=== PATIENT | male | born 1985 | race Caucasian/White ===

== ENCOUNTER 2017-11-21 01:50 | Outpatient (CLI) | payer BC, SELFPAY ==
[2017-11-21 08:53] LABS: Absolute Basophil Count 0.02 k/cumm (0.0-0.2); Absolute Eosinophil Count 0.03 k/cumm (0.0-0.7); Absolute Monocyte Count 0.55 k/cumm (0.11-0.7); Absolute Neutrophil Count 2.04 k/cumm (1.2-6.7); Basophils % 0.4; Eosinophils % 0.7; HCT 44.8 % (40.0-50.0); HGB 15.6 g/dL (13.5-17.5); Lymphocytes % 41.9; Mean Corp. HGB Concentration 34.8 g/dL (32.0-36.0); Mean Corpuscular Hemoglobin 30.4 pg (27.0-33.0); Mean Corpuscular Volume 87.2 fL (80-95); Mean Platelet Volume 10.6 fL (8.0-11.0); Monocytes % 12.1; Neutrophils % 44.9; Platelet Count 251 x1000/uL (130-400); RBC 5.14 m/cumm (4.50-6.00); RBC Distribution Width 12.8 % (11.8-14.1); White Blood Cell Count 4.54 k/cumm (4.4-10.8)
[2017-11-21 10:30] LABS: ALT 30 U/L (12-78); AST 22 U/L (15-37); Albumin 3.9 g/dL (3.4-5.0); Alkaline Phosphatase 51 U/L (46-116); Anion Gap 8.9 mmol/L (3-11); BUN 8 mg/dL (7-18); Bilirubin, Total 0.5 mg/dL (0.2-1.0); CO2 30.1 mmol/L (21.0-32.0); CREATININE 0.82 mg/dL (0.70-1.30); Calcium 8.8 mg/dL (8.5-10.1); Chloride 101 mmol/L (98-107); Cholesterol 137 mg/dL (50-200); Glucose 91 mg/dL (70-100); HDL Cholesterol 61 mg/dL (40-60); LDL CHOLESTEROL 68 mg/dL (<100); Potassium 4.3 mmol/L (3.5-5.1); Sodium 140 mmol/L (136-145); Total Protein 6.8 g/dL (6.4-8.2); Triglyceride 51 mg/dL (30-150); Vitamin B12 560 pg/mL (193-986)
[2017-11-21 10:35] LABS: Folate > 20.0 ng/mL (8.6-20.0)
[2017-11-26 06:57] LABS: 25-Hydroxy D Total 27 ng/mL; 25-Hydroxy D2 <4.0 ng/mL; 25-Hydroxy D3 27 ng/mL
== END 2017-11-21 02:10 ==
PROVIDERS: PCP Nurse Practitioner Family; Visit Provider Nurse Practitioner Family
DX: F15.20 Other stimulant dependence, uncomplicated (principal); F10.11 Alcohol abuse, in remission; F40.10 Social phobia, unspecified; Z13.21 Encounter for screening for nutritional disorder
CPT/HCPCS: 36415; 80053; 80061; 82306; 83721; 82607; 82746; 85025

== ENCOUNTER 2018-03-14 01:04 | Outpatient (CLI) | payer BC, SELFPAY ==
[2018-03-14 08:30] LABS: C-Reactive Protein < 0.05 mg/dL (0.0-0.3); Cholesterol 177 mg/dL (50-200); HDL Cholesterol 67 mg/dL (40-60); LDL CHOLESTEROL 95 mg/dL (<100); Triglyceride 66 mg/dL (30-150)
== END 2018-03-14 01:24 ==
PROVIDERS: PCP Nurse Practitioner Family; Visit Provider Internal Medicine Cardiovascular Disease
DX: I48.92 Unspecified atrial flutter (principal); Z82.49 Family history of ischemic heart disease and other diseases of the circulatory system
CPT/HCPCS: 36415; 80061; 83721; 86140

== ENCOUNTER 2018-07-12 16:14 | Emergency (ER) | payer BC, SELFPAY ==
[2018-07-12 16:20] VITALS: BP 143/73; PULSE 56; RESP 16; TEMP 36.6; O2SAT 98
--- NOTE | 2018-07-12 16:38 | DI.CT_ITS ---
SYMPTOMS/DIAGNOSIS: HIT IN FACE BY TREE, ? BLEED OR LEFORTES FX CT BRAIN: Noncontrast. No priors. The ventricular system is normal in appearance. There is no evidence of an intracranial mass lesion. There is no evidence of a subdural or epidural hematoma. No focal areas of decreased attenuation are seen. CONCLUSION: Normal noncontrast Cranial CT. CT SCAN OF THE FACE: Multiple contiguous axial images of the face were obtained. Sagittal and coronal reformatted images were evaluated on the workstation. No acute fracture or dislocation is seen. The orbits and retro-orbital soft tissues are unremarkable. The visualized paranasal sinuses are clear. IMPRESSION: No evidence of an acute facial fracture.
--- NOTE | 2018-07-12 16:47 | W.ED.GENAD ---
Discharge Plan Disposition Patient Disposition: HOME Condition: Good Discharge Details Chief Complaint: HeadInjury Clinical Impression: Concussion, Contusion of face Primary Care Provider: Patti Palomo ED Provider: Gustavo Aguirre Home Meds and New Rx's Prescriptions: No Action divalproex [Depakote ER] 500 MG tablet extended release 24 hr 1,500 mg PO HS Qty: 270 RF: 3 venlafaxine 150 mg Capsule,Extended Release 24hr 150 mg PO DAILY RF: 0 Discharge Instructions Instructions: Concussion (ED), Contusion in Adults (ED) Additional Instructions: If you notice any worsening of your symptoms, or any new symptoms such as vomiting, diarrhea, fever, chills, shortness of breath, chest pain, numbness, weakness, or fainting , please return immediately to the emergency department for reevaluation. Please follow up with your primary care provider as soon as possible for reassessment and reevaluation. As always, it was a pleasure participating in your medical care today. Referrals: Patti Palomo [Primary Care Provider] - Medical Decision Making This is a pleasant 32-year-old male with a past medical history of epilepsy who takes Depakote, who presents today for trauma to his face. He was hit in the face by a tree when he was cutting it. He had no loss of consciousness. He had some notable bleeding from his nose, and does feel that he is slightly dazed. Neurologic exam is normal for any focal neurologic deficits. Physical exam demonstrates a slightly loose tooth #8 in the upper incisor, no evidence of significant looseness so requiring bonding. No evidence of tooth fracture. Dried blood in the nares, no signs of nasal septal hematoma. Due to the nature of the trauma, we will get a CT scan of the head and face to rule out [place] fracture or acute bleed. Suspect concussion and contusion though. We will update his tetanus, and give Tylenol for pain. 6:[address] scan results have returned and per virtual radiology there is no evidence of acute fracture, [place] fracture, or intracranial bleed. Patient's pain is well controlled. Signs and symptoms are clinically consistent with a mild concussion. Recommend continue Tylenol, Motrin and rest. We discussed red flags which to return. Repeat neurologic exam demonstrates continued absence of neurologic deficits or abnormality. I have extensively reviewed the treatment plan and discharge instructions with the patient and their family. I have addressed all patient concerns at this time. The patient and family was made aware of what symptoms to monitor for that would warrant a return to the emergency department. Discussed the plan with the patient and family, they demonstrate verbal understanding and agreement with our assessment and plan at this time. EXAM: CT Maxillofacial Without Contrast EXAM DATE/TIME: 07/12/2018 5:06 PM CLINICAL HISTORY: 32 years old, male; Injury or trauma; Injury history: Struck in face by tree; Initial encounter; Abrasion; Lip/oral cavity; Upper TECHNIQUE: Imaging protocol: Axial computed tomography images of the face without intravenous contrast. Coronal and sagittal reformatted images were created and reviewed. COMPARISON: No relevant prior studies available. FINDINGS: No acute fracture or dislocation. The orbits and globes are intact bilaterally.The mandible is intact. The alignment of the temporomandibular joints is maintained bilaterally. IMPRESSION: No fracture. EXAM: CT Head Without Contrast EXAM DATE/TIME: 07/12/2018 5:06 PM CLINICAL HISTORY: 32 years old, male; Injury or trauma; Injury history: Struck in face by tree; Initial encounter; Abrasion; Lip/oral cavity; Upper TECHNIQUE: Imaging protocol: Axial computed tomography images of the head without contrast. Coronal and sagittal reformatted images were created and reviewed. COMPARISON: No relevant prior studies available. FINDINGS: There is no intracranial hemorrhage. There is no mass effect or midline shift. The ventricles and sulci are appropriate in size and configuration for age. Normal clancy white differentiation. The calvarium is intact. IMPRESSION: No acute intracranial findings. Dictated and Authenticated by: Frank Rice MD. Ordering:SHAYLEE Chen MD HPI General Date/Time Provider Initiated Documentation: 07/12/18 16:26. HPI Narrative: This is a pleasant 32-year-old male with a past medical history of epilepsy for which he takes Depakote, as well as previous cardiac condition of atrial flutter requiring cardiac ablation. He presents today for evaluation of trauma to his face. He states that he was cutting a tree when a branch instead of falling down snapped back and hit him in the front of the face. He had no loss of consciousness and recalls the entire event. It occurred roughly 1 hour prior to arrival. He had notable tingling and numbness over his front lip, bleeding from the nose, and pain in the distal aspect of the nose. He denies any loss of consciousness, change in vision, chest pain, shortness of breath, neck pain. He does have mild headache. He denies any other complaints at this time. No other modifying factors. Related Data Home Medications Medication Instructions Recorded Confirmed divalproex [Depakote Er] 1,500 mg PO HS #270 tab 07/22/17 07/12/18 venlafaxine 150 mg PO DAILY 07/12/18 07/12/18 Previous Rx's Medication Instructions Recorded divalproex [Depakote Er] 1,500 mg PO HS #270 tab 07/22/17 Allergies Allergy/AdvReac Type Severity Reaction Status Date / Time No Known Allergies Allergy Unverified 07/12/18 16:25 General Stated Complaint: HeadInjury TAVO: 3 Review of Systems Review of Systems All systems reviewed & are unremarkable except as noted in HPI and below PFSH Medical History Epilepsy (Acute) Social History Smoking/Tobacco Use Status: Never Alcohol Intake: current Drug use: Never Additional Social history: pt is not alone to assess privately Exam Narrative Exam Narrative: 1.Const: Well-nourished, Well-developed, appearing stated age 2.Eyes: PERRL, no conjunctival injection, and symmetrical lids. 3.ENT: . Small minimal laceration of the frenulum for his upper lip. Moist MM. Neck: Symmetric, trachea midline, No thyromegaly. There is no evidence of raccoon eyes, branch sign, CSF rhinorrhea, mastoid tenderness, cranial crepitus, hemotympanum, exophthalmos, or hyphema. Patient demonstrates intact dentition with no signs of tooth avulsion or fracture, no signs of jaw deformity, no evidence of a severe LeFort's fracture, with an intact palate, nose and orbital region. He does have a slightly loose upper front incisor at tooth 8. No evidence of significant looseness so. The difference is only subtle. There is no evidence of a nasal septal hematoma. There is dried blood in the nares. No proptosis. Jaw closes symmetrically. Airway is clear. 4.CVS: +S1/S2, No murmurs or gallops. Peripheral pulses 2+ and equal in all extremities. Brisk capillary refill in all extremities. 5.RESP: Unlabored respiratory effort. Clear to auscultation bilaterally. No wheezes rales or rhonchi 6.GI: Soft, Nontender/Nondistended, No hepatosplenomegaly. No guarding or rebound. 7.MSK: Normocephalic/Atraumatic, Extremities w/o deformity or ttp No cyanosis or clubbing, Normal movement of all extremities. No midline cervical thoracic or lumbar spine tenderness. 8.Skin: Warm, Dry. No rashes or lesions. 9.Neuro: dean II-XII grossly intact. Sensation grossly intact, no focal neurologic deficits. All 6 cardinal planes of vision are fully intact. No evidence of rotatory or vertical nystagmus. The patient demonstrated a normal klnmcu-[id number]-tiwsmn, good dexterity. There was no evidence of dysdiadochokinesia. Patient was able to ambulate without difficulty. There was no wide-based gait. Romberg, and nfbd-rk-juil are both normal on testing. Sensation was intact bilaterally as well as muscle strength bilaterally for all extremities. Patient was able to verbalize butter cup with no slurring, or miss pronunciation. 10.Psych: (AAO) x3. Appropriate mood and affect Course Vital Signs Temperature 36.6 C 07/12/18 16:20 Pulse 56 L 07/12/18 16:20 Respiratory Rate 16 07/12/18 16:20 Blood Pressure 143/73 H 07/12/18 16:20 Pulse Oximetry 98 07/12/18 16:20 Temperature 36.6 C 07/12/18 16:20 Temperature Source Skin 07/12/18 16:20 Pulse 56 L 07/12/18 16:20 Respiratory Rate 16 07/12/18 16:20 Respiratory Effort Non-Labored 07/12/18 16:43 Respiratory Depth Normal 07/12/18 16:43 Respiratory Pattern Normal 07/12/18 16:43 Blood Pressure 143/73 H 07/12/18 16:20 Pulse Oximetry 98 07/12/18 16:20 Pain Level 3 07/12/18 16:43
--- NOTE | 2018-07-12 16:50 | ED.GENADUL_ITS ---
Discharge Plan Disposition Patient Disposition: HOME Condition: Good Discharge Details Chief Complaint: HeadInjury Clinical Impression: Concussion, Contusion of face Primary Care Provider: Patti Palomo ED Provider: Gustavo Aguirre Home Meds and New Rx's Prescriptions: No Action divalproex [Depakote ER] 500 MG tablet extended release 24 hr 1,500 mg PO HS Qty: 270 RF: 3 venlafaxine 150 mg Capsule,Extended Release 24hr 150 mg PO DAILY RF: 0 Discharge Instructions Instructions: Concussion (ED), Contusion in Adults (ED) Additional Instructions: If you notice any worsening of your symptoms, or any new symptoms such as vomiting, diarrhea, fever, chills, shortness of breath, chest pain, numbness, weakness, or fainting , please return immediately to the emergency department for reevaluation. Please follow up with your primary care provider as soon as possible for reassessment and reevaluation. As always, it was a pleasure part icipating in your medical care today. Referrals: Patti Palomo [Primary Care Provider] - Medical Decision Making This is a pleasant 32-year-old male with a past medical history of epilepsy who takes Depakote, who presents today for trauma to his face. He was hit in the face by a tree when he was cutting it. He had no loss of consc iousness. He had some notable bleeding from his nose, and does feel that he is slightly dazed. Neurologic exam is normal for any focal neurologic deficits. Physical exam demonstrates a slightly loose tooth #8 in the upper incisor, no evidence of significant looseness so requiring bonding. No evidence of tooth fracture. Dried blood in the nares, no signs of nasal septal hematoma. Due to the nature of the trauma, we will get a CT scan of the head and face to rule out [place] fracture or acute bleed. Suspect concussion and contusion though. We will update his tetanus, and give Tylenol for pain. 6:[address] scan results have returned and per virtual radiology there is no evidence of acute fracture, [place] fracture, or intracranial bleed. Patient's pain is well controlled. Signs and symptoms are clinically consistent with a mild concussion. Recommend continue Tylenol, Motrin and rest. We discussed red flags which to return. Repeat neurologic exam demonstrates continued absence of neurologic deficits or abnormality. I have extensively reviewed the treatment plan and discharge instructions with the patient and their family. I have addressed all patient concerns at this time. The patient and family was made aware of what symptoms to monitor for that would warrant a return to the emergency department. Discussed the plan with the patient and family, they demonstrate verbal understanding and agreement with our assessment and plan at this time. EXAM: CT Maxillofacial Without Contrast EXAM DATE/TIME: 07/12/2018 5:06 PM CLINICAL HISTORY: 32 years old, male; Injury or trauma; Injury history: Struck in face by tree; Initial encounter; Abrasion; Lip/oral cavity; Upper TECHNIQUE: Imaging protocol: Axial computed tomography images of the face without intravenous contrast. Coronal and sagittal reformatted images were created and reviewed. COMPARISON: No relevant prior studies available. FINDINGS: No acute fracture or dislocation. The orbits and globes are intact bilaterally.The mandible is intact. The alignment of the temporomandibular joints is maintained bilaterally. IMPRESSION: No fracture. EXAM: CT Head Without Contrast EXAM DATE/TIME: 07/12/2018 5:06 PM CLINICAL HISTORY: 32 years old, male; Injury or trauma; Injury history: Struck in face by tree; Initial encounter; Abrasion; Lip/oral cavity; Upper TECHNIQUE: Imaging protocol: Axial computed tomography images of the head without contrast. Coronal and sagittal reformatted images were created and reviewed. COMPARISON: No relevant prior studies available. FINDINGS: There is no intracranial hemorrhage. There is no mass effect or midline shift. The ventricles and sulci are appropriate in size and configuration for age. Normal clancy white differentiation. The calvarium is intact. IMPRESSION: No acute intracranial findings. Dictated and Authenticated by: Frank Rice MD. Ordering:SHAYLEE Chen MD HPI General Date/Time Provider Initiated Documentation: 07/12/18 16:26 . HPI Narrative: T is a pleasant 32-year-old male with a past medical history of epilepsy for which he takes Depakote, as well as previous cardiac condition of atrial flutter requiring cardiac ablation. He presents today for evaluation of trauma to his face. He states that he was cutting a tree when a branch instead of falling down snapped back and hit him in the front of the face. He had no loss of consciousness and recalls the entire event. It occurred roughly 1 hour prior to arrival. He had notable tingling and numbness over his front lip, bleeding from the nose, and pain in the distal aspect of the nose. He denies any loss of consciousness, change in vision, chest pain, shortness of breath, neck pain. He does have mild headache. He denies any other complaints at this time. No other modifying factors. Related Data Home Medications Medication Instructions Recorded Confirmed divalproex [Depakote Er] 1,500 mg PO HS #270 tab 07/22/17 07/12/18 venlafaxine 150 mg PO DAILY 07/12/18 07/12/18 Previous Rx's Medication Instructions Recorded divalproex [Depakote Er] 1,500 mg PO HS #270 tab 07/22/17 Allergies Allergy/AdvReac Type Severity Reaction Status Date / Time No Known Allergies Allergy Unverified 07/12/18 16:25 General Stated Complaint: HeadInjury TAVO: 3 Review of Systems Review of Systems All systems reviewed & are unremarkable except as noted in HPI and below PFSH Medical History Epilepsy (Acute) Social History Smoking/Tobacco Use Status: Never Alcohol Intake: current Drug use: Never Additional Social history: pt is not alone to assess privately Exam Narrative Exam Narrative: 1.Const: Well-nourished, Well-developed, appearing stated age 2.Eyes: PERRL, no conjunctival injection, and symmetrical lids. 3.ENT: . Small minimal laceration of the frenulum for his upper lip. Moist MM. Neck: Symmetric, trachea midline, No thyromegaly. There is no evidence of raccoon eyes, branch sign, CSF rhinorrhea, mastoid tenderness, cranial crepitus, hemotympanum, exophthalmos, or hyphema. Patient demonstrates intact dentition with no signs of tooth avulsion or fracture, no signs of jaw deformity, no evidence of a severe LeFort's fracture, with an intact palate, nose and orbital region. He does have a slightly loose upper front incisor at tooth 8. No evidence of significant looseness so. The difference is only subtle. There is no evidence of a nasal septal hematoma. There is dried blood in the nares. No proptosis. Jaw closes symmetrically. Airway is clear. 4.CVS: +S1/S2, No murmurs or gallops. Peripheral pulses 2+ and equal in all extremities. Brisk capillary refill in all extremities. 5.RESP: Unlabored respiratory effort. Clear to auscultation bilaterally. No wheezes rales or rhonchi 6.GI: Soft, Nontender/Nondistended, No hepatosplenomegaly. No guarding or rebound. 7.MSK: Normocephalic/Atraumatic, Extremities w/o deformity or ttp No cyanosis or clubbing, Normal movement of all extremities. No midline cervical thoracic or lumbar spine tenderness. 8.Skin: Warm, Dry. No rashes or lesions. 9.Neuro: medical assistant float II-XII grossly intact. Sensation grossly intact, no focal neurologic deficits. All 6 cardinal planes of vision are fully intact. No evidence of rotatory or vertical nystagmus. The patient demonstrated a normal wibkte-gaci-rpbimq, good dexterity. There was no evidence of dysdiadochokinesia. Patient was able to ambulate without difficulty. There was no wide-based gait. Romberg, and qxoq-[id number] are both normal on testing. Sensation was intact bilaterally as well as muscle strength bilaterally for all extremities. Patient was able to verbalize butter cup with no slurring, or miss pronunciation. 10.Psych: (AAO) x3. Appropriate mood and affect Course Vital Signs Temperature 36.6 C 07/12/18 16:20 Pulse 56 L 07/12/18 16:20 Respiratory Rate 16 07/12/18 16:20 Blood Pressure 143/73 H 07/12/18 16:20 Pulse Oximetry 98 07/12/18 16:20 Temperature 36.6 C 07/12/18 16:20 Temperature Source Skin 07/12/18 16:20 Pulse 56 L 07/12/18 16:20 Respiratory Rate 16 07/12/18 16:20 Respiratory Effort Non-Labored 07/12/18 16:43 Respiratory Depth Normal 07/12/18 16:43 Respiratory Pattern Normal 07/12/18 16:43 Blood Pressure 143/73 H 07/12/18 16:20 Pulse Oximetry 98 07/12/18 16:20 Pain Level 3 07/12/18 16:43
[2018-07-12] MEDS: Acetaminophen 500 MG TAB (16:51)
--- NOTE | 2018-07-12 17:51 | DI.VRAD_ITS ---
EXAM: CT Maxillofacial Without Contrast EXAM DATE/TIME: 07/12/2018 5:06 PM CLINICAL HISTORY: 32 years old, male; Injury or trauma; Injury history: Struck in face by tree; Initial encounter; Abrasion; Lip/oral cavity; Upper TECHNIQUE: Imaging protocol: Axial computed tomography images of the face without intravenous contrast. Coronal and sagittal reformatted images were created and reviewed. COMPARISON: No relevant prior studies available. FINDINGS: No acute fracture or dislocation. The orbits and globes are intact bilaterally.The mandible is intact. The alignment of the temporomandibular joints is maintained bilaterally. IMPRESSION: No fracture. EXAM: CT Head Without Contrast EXAM DATE/TIME: 07/12/2018 5:06 PM CLINICAL HISTORY: 32 years old, male; Injury or trauma; Injury history: Struck in face by tree; Initial encounter; Abrasion; Lip/oral cavity; Upper TECHNIQUE: Imaging protocol: Axial computed tomography images of the head without contrast. Coronal and sagittal reformatted images were created and reviewed. COMPARISON: No relevant prior studies available. FINDINGS: There is no intracranial hemorrhage. There is no mass effect or midline shift. The ventricles and sulci are appropriate in size and configuration for age. Normal clancy white differentiation. The calvarium is intact. IMPRESSION: No acute intracranial findings. Dictated and Authenticated by: Frank Rice MD. Ordering:SHAYLEE Chen MD
[2018-07-12 19:01] VITALS: BP 145/74; PULSE 66; RESP 16; O2SAT 96
== END 2018-07-12 19:04 | disposition home or self-care (01) ==
PROVIDERS: Emergency Provider Student in an Organized Health Care Education/Training Program; PCP Nurse Practitioner Family
DX: S00.83XA Contusion of other part of head, initial encounter (principal); S06.0X0A Concussion without loss of consciousness, initial encounter; R04.0 Epistaxis; W20.8XXA Other cause of strike by thrown, projected or falling object, initial encounter; G40.909 Epilepsy, unspecified, not intractable, without status epilepticus
CPT/HCPCS: 90471; 99284; 70450; 70486

== ENCOUNTER 2018-08-11 08:13 | Outpatient (CLI) | payer BC, SELFPAY ==
[2018-08-13 08:03] LABS: Zonisamide 8.2 mcg/mL (10-40)
== END 2018-08-11 08:33 ==
PROVIDERS: PCP Nurse Practitioner Family; Visit Provider Psychiatry & Neurology Neurology
DX: G40.309 Generalized idiopathic epilepsy and epileptic syndromes, not intractable, without status epilepticus (principal); Z51.81 Encounter for therapeutic drug level monitoring; Z79.899 Other long term (current) drug therapy
CPT/HCPCS: 36415; 80203

== ENCOUNTER 2018-08-28 14:14 | Outpatient (REF) | payer BC, SELFPAY ==
[2018-09-01 12:41] LABS: Varicella IgG Antibody Positive
[2018-09-01 14:44] LABS: HSV Type 1 Ab, IgG Negative; HSV Type 2 Ab, IgG Negative
== END 2018-08-28 14:34 ==
LOC: NCHCN 14:14
PROVIDERS: PCP Nurse Practitioner Family; Visit Provider Nurse Practitioner Family
DX: Z20.2 Contact with and (suspected) exposure to infections with a predominantly sexual mode of transmission (principal); Z11.59 Encounter for screening for other viral diseases
CPT/HCPCS: 86787; 86695; 86696

== ENCOUNTER 2019-03-19 16:46 | Outpatient (REF) | payer BC, SELFPAY ==
[2019-03-21 10:49] LABS: Campylobacter PCR Negative (Negative); Salmonella PCR Negative (Negative); Shiga Toxin PCR Negative (Negative); Shigella/Enteroinvasive Ecoli Negative (Negative)
== END 2019-03-19 17:06 ==
LOC: LBN 16:46
PROVIDERS: PCP Nurse Practitioner Family; Visit Provider Nurse Practitioner Family
DX: R19.7 Diarrhea, unspecified (principal)
CPT/HCPCS: 87329; 87505

== ENCOUNTER 2023-12-10 22:25 | Outpatient (CLI) | payer OTHER, SELFPAY ==
[2023-12-10 16:55] LABS: TSH (W/Ref FT4) 1.39 uIU/mL (0.36-3.74); Vitamin B12 547 pg/mL (193-986)
== END 2023-12-10 22:26 ==
LOC: LBO 22:26
PROVIDERS: PCP Nurse Practitioner Family; Visit Provider Psychiatry & Neurology Neurology
DX: R41.3 Other amnesia (principal); G62.9 Polyneuropathy, unspecified
CPT/HCPCS: 36415; 82607; 84443

== ENCOUNTER 2023-12-21 10:57 | Emergency (ER) | payer OTHER, SELFPAY ==
[2023-12-21 10:59] VITALS: BP 126/75; PULSE 84; RESP 17; O2SAT 97
[2023-12-21 11:02] VITALS: BP 126/75; PULSE 86; PULSE 90; RESP 7; O2SAT 95
[2023-12-21 11:16] VITALS: BP 131/85; PULSE 82; PULSE 86; RESP 11; O2SAT 97
[2023-12-21 11:23] LABS: Abs Immature Grans 0.02 10^3/uL (0.0-0.06); Absolute Basophil Count 0.03 10^3/uL (0.0-0.2); Absolute Eosinophil Count 0.06 10^3/uL (0.0-0.7); Absolute Lymphocyte Count 1.79 10^3/uL (1.2-3.4); Absolute Monocyte Count 0.42 10^3/uL (0.1-0.8); Basophils % 0.6 %; Eosinophils % 1.2 %; HCT 44.6 % (40.0-50.0); HGB 15.6 g/dL (13.5-17.5); Immature Grans % 0.4 %; MCH 30.1 pg (27.0-33.0); MCV 86 fL (80-95); MPV 9.8 fL (8.0-11.0); Monocytes % 8.2 %; Neutrophils % 54.6 %; Platelet Count 279 10^3/uL (130-400); RBC 5.19 10^6/uL (4.36-5.78); RDW 12.3 % (11.8-14.1); RDW-SD 38.6 fL; WBC 5.12 10^3/uL (4.4-10.8)
--- NOTE | 2023-12-21 11:26 | ED.GENADUL_ITS ---
Discharge Plan Disposition Patient Disposition: Home Condition: Stable Discharge Details Clinical Impression: Breakthrough seizure, Nonintractable generalized idiopathic epilepsy without status epilepticus Primary Care Provider: Dalia Bailey ED Provider: Jesika Flores Home Meds and New Rx's Prescriptions: No Action zonisamide 100 mg capsule See Rx Instructions .ROUTE .COMPLEX Qty: 270 3RF Dose Instruction: TAKE 300 MG (THREE) CAPSULE BY MOUTH AT BEDTIME Rx Instructions: TAKE 300 MG (THREE) CAPSULE BY MOUTH AT BEDTIME lorazepam 0.5 mg tablet 0.5 mg PO QD-BID PRN (Reason: anxiety) Qty: 1 0RF duloxetine [Cymbalta] 20 mg capsule,delayed release(DR/EC) 20 mg PO BID Discharge Instructions Instructions: Seizures, Adult ED Additional Instructions: You were seen in the emergency department today for evaluation after breakthrough seizure. In our department a full physical examination performed and had laboratory studies that were reassuring. You were monitored in our department and did not have any further generalized seizure activity, though you did note a myoclonic jerk. We have sent a zonisamide level for your neurologist to follow-up on in the outpatient environment, and you should reach out to their clinic at your earliest convenience to schedule a follow-up appointment. Please continue all of your medications as prescribed, maintain good hydration and nutrition, and attempt to maintain good sleep hygiene. If you have additional seizure activity, or any other concerns you can return to the emergency department for reevaluation. Thank you for allowing us to be part of your care. HPI General Mode of arrival: ambulatory . Date/Time Provider Initiated Documentation: 12/21/23 10:58 . Limitations to Documentation: no limitations . Information obtained by: patient, family and old records reviewed . HPI Narrative: HPI: This is a 38-year-old male patient with a past medical history significant for epilepsy and myoclonic jerks, atrial fibrillation status post ablation, who is presenting for evaluation of a breakthrough seizure. The patient reports that he has not had a seizure in approximately 11 years, has been taking his zonisamide 300 mg at bedtime without change in dose. He states that he woke up this morning and was feeling slightly off from his baseline, states that he occasionally feels this way, especially after a night of poor sleep. He also states he had a few alcoholic drinks last night, and that sometimes he does not wake up feeling typical after drinking. Per his , who is with him, she noted that he made a sound and looked unwell, and his knees buckled. She was able to catch him and lowered him to the ground where he had approximately 2 minutes of convulsive activity. He was then postictal, with sleepiness, confusion, and disorientation. She noticed that he bit to the sides of his tongue, never stopped breathing and gradually returned to his baseline. EMS arrived and evaluated the patient, and the patient was ultimately transported by personal vehicle to our hospital for evaluation. The patient reports that he has not had recent illness, fevers, or injury. No other changes to medications, no travel, no [id number] supplements or difficulty libia ntaining hydration. Exam: Gen: Awake and alert, in no apparent distress HEENT: Non-icteric sclera, pupils equal and reactive bilaterally, EOMs are full. The patient has lacerations appreciated to the bilateral lateral aspects of the tongue, hemostatic Neck: Supple, full range of motion without meningismus Lungs: No apparent respiratory distress, normal respiratory effort. Lung sounds clear and equal CV: Appears well perfused, strong distal pulses Abdomen: Non-distended, soft, nontender MSK: Moves 4 extremities without apparent limitation in ROM Skin: Visualized skin without rashes, cyanosis. Neuro: Normal Gait, cranial nerves II through XII intact and symmetrical bilaterally, 5 out of 5 strength x 4 extremities, no sensory deficits, no pronator drift. Speaks in full, clear sentences. Psych: Appropriate for situation. MDM: This is a 38-year-old male patient presenting for evaluation of breakthrough seizure. My differential includes but is not limited to metabolic and electrolyte derangements, dehydration, hypoglycemia, kidney injury. I considered medication nonadherence of this is less typical of the patient's history, no other recent medication changes to suggest medication effect or withdrawal syndromes. No trauma, he has no neurodeficits to suggest intracranial hemorrhage, mass effect, Tito's paralysis. I certainly considered stress, poor sleep, and alcohol as potential triggers for his breakthrough seizure. Reassuringly, the patient is now mentating appropriately, is hemodynamically appropriate, we will obtain laboratory studies to include CBC, CMP, magnesium, and I will send out a zonisamide level for his neurologist to follow-up on. He has no trauma nor neurodeficits to suggest that he requires advanced imaging. ED Course: I independently interpreted the laboratory studies, which show no significant leukocytosis, anemia, or thrombocytopenia. The chemistry panel is without evidence of electrolyte abnormality, kidney dysfunction, or liver injury. The patient was monitored and had no hemodynamic instability. He had no recurrent seizure activity, did note a single myoclonic jerk while resting. They will follow-up with his neurologist for reevaluation and follow-up of his zonisamide level. At this time, the patient has had a full medical evaluation and is safe for discharge to home. They are hemodynamically stable, ambulatory, and tolerating PO. They are understanding of the follow-up plan and return precautions. They left our facility without incident. Jesika Flores MD Related Data Home Medications ?Medication ?Instructions ?Recorded ?Confirmed lorazepam 0.5 mg tablet 0.5 mg PO QD-BID PRN anxiety #1 tab 07/21/18 11/20/23 duloxetine 20 mg capsule,delayed 20 mg PO BID 11/21/22 11/20/23 release (Cymbalta) zonisamide 100 mg capsule See Rx Instructions .Route 11/20/23 11/20/23 .COMPLEX #270 caps Previous Rx's ?Medication ?Instructions ?Recorded lorazepam 0.5 mg tablet 0.5 mg PO QD-BID PRN anxiety #1 tab 07/21/18 zonisamide 100 mg capsule See Rx Instructions .Route 11/20/23 .COMPLEX #270 caps Allergies Allergy/AdvReac Type Severity Reaction Status Date / Time No Known Allergies Allergy Unverified 12/21/23 11:04 General Stated Complaint: Seizure TAVO: 3 Course Vital Signs Vital signs: Vital Signs Pulse 84 12/21/23 10:59 Respiratory Rate 17 12/21/23 10:59 Blood Pressure 126/75 12/21/23 10:59 Pulse Oximetry 97 12/21/23 10:59 Pulse 84 12/21/23 10:59 Respiratory Rate 17 12/21/23 10:59 Respiratory Effort Normal 12/21/23 11:19 Respiratory Depth Normal 12/21/23 11:19 Respiratory Pattern Normal 12/21/23 11:19 Blood Pressure 126/75 12/21/23 10:59 Pulse Oximetry 97 12/21/23 10:59 Oxygen Delivery Method Room Air 12/21/23 10:59 Oxygen Flow Rate 0 12/21/23 10:59 Pain Level 1 12/21/23 10:59 Lab/Test Results Lab/Test Results: Laboratory Tests Range/Units 12/21/23 11:13 WBC (4.4-10.8) 10^3/uL 5.12 RBC (4.36-5.78) 10^6/uL 5.19 Hgb (13.5-17.5) g/dL 15.6 Hct (40.0-50.0) % 44.6 MCV (80-95) fL 86 MCH (27.0-33.0) pg 30.1 MCHC (32.0-36.0) % 35.0 RDW (11.8-14.1) % 12.3 Plt Count (130-400) 10^3/uL 279 MPV (8.0-11.0) fL 9.8 Immature Gran % % 0.4 Neutrophils % % 54.6 Lymphocytes % % 35.0 Monocytes % % 8.2 Eosinophils % % 1.2 Basophils % % 0.6 Nucleated RBC % (0.0-0.3) % 0.0 Absolute Neutrophils (1.2-6.7) 10^3/uL 2.80 Absolute Lymphocytes (1.2-3.4) 10^3/uL 1.79 Absolute Monocytes (0.1-0.8) 10^3/uL 0.42 Absolute Eosinophils (0.0-0.7) 10^3/uL 0.06 Absolute Basophils (0.0-0.2) 10^3/uL 0.03 Medical Decision Making Quality:SDOH Health Related Social Needs: No Data to Display PFSH All Active Problems (Updated 12/21/23 @ 11:59 by Jesika Flores MD) Breakthrough seizure (Acute) Strep pharyngitis (Acute) Hyperacusis of left ear (Acute) Normal hearing exam (Acute) Encounter for screening for other viral diseases (Acute) Atrial fibrillation (Chronic) s/p ablation Anxiety (Chronic) Left inguinal hernia (Acute 02/19/17) Left varicocele (Acute 02/19/17) Nonintractable generalized idiopathic epilepsy without status epilepticus (Acute 10/19/15) Medical History Atrial flutter Seizure disorder Social phobia Alcohol abuse, in remission Recent weight loss Otalgia of left ear Tenderness of temporomandibular joint Decreased libido Surgical History History of cardiac radiofrequency ablation Family History Father Heart disease Bladder cancer Mother Breast disease Social History Smoking/Tobacco Use Status: Never Smoking risk assessment performed?: Yes Alcohol Intake: current Drug use: Never Household members: spouse and children Number of Children: 2 current occupation: [employer] Additional Social history: pt is not alone to assess privately
[2023-12-21 11:32] VITALS: BP 127/77; PULSE 77; PULSE 86; RESP 15; O2SAT 97
[2023-12-21 11:46] VITALS: BP 116/87; PULSE 83; PULSE 85; RESP 16; O2SAT 98
[2023-12-21 11:47] LABS: ALT 29 U/L (16-63); AST 15 U/L (15-37); Albumin 4.1 g/dL (3.4-5.0); Alkaline Phosphatase 58 U/L (46-116); Anion Gap 12.5 mmol/L (3-11); BUN 12 mg/dL (7-18); Bilirubin, Total 0.49 mg/dL (0.2-1.0); CO2 23.5 mmol/L (21.0-32.0); Calcium 8.9 mg/dL (8.5-10.1); Chloride 107 mmol/L (98-107); Estimated GFR 97.58 (mL/min/1.73m2); Glucose 135 mg/dL (74-106); Potassium 4.1 mmol/L (3.5-5.1); Sodium 143 mmol/L (136-145); Total Protein 7.3 g/dL (6.4-8.2)
[2023-12-21 12:01] VITALS: BP 118/94; PULSE 82; PULSE 90; RESP 13; O2SAT 97
== END 2023-12-21 12:09 | disposition home or self-care (01) ==
LOC: ER 12:16
PROVIDERS: Emergency Provider Emergency Medicine; PCP Nurse Practitioner Family
DX: G40.309 Generalized idiopathic epilepsy and epileptic syndromes, not intractable, without status epilepticus (principal); G25.3 Myoclonus; I48.91 Unspecified atrial fibrillation
CPT/HCPCS: 80053; 80203; 99284; 83735; 85025

== ENCOUNTER 2023-12-21 14:01 | Emergency (ER) | payer OTHER, SELFPAY ==
[2023-12-21] VITALS (10 sets, daily range): BP systolic 111–135; BP diastolic 68–113; PULSE 78–100; RESP 10–18; TEMP 36.4; O2SAT 94–100
--- NOTE | 2023-12-21 14:17 | W.ED.GENAD ---
Discharge Plan Discharge Details Chief Complaint: Seizure Primary Care Provider: Dalia Bailey ED Provider: Jesika Flores Home Meds and New Rx's Prescriptions: No Action zonisamide 100 mg capsule See Rx Instructions .ROUTE .COMPLEX Qty: 270 3RF Dose Instruction: TAKE 300 MG (THREE) CAPSULE BY MOUTH AT BEDTIME Rx Instructions: TAKE 300 MG (THREE) CAPSULE BY MOUTH AT BEDTIME lorazepam 0.5 mg tablet 0.5 mg PO QD-BID PRN (Reason: anxiety) Qty: 1 0RF duloxetine [Cymbalta] 20 mg capsule,delayed release(DR/EC) 20 mg PO DAILY HPI General Mode of arrival: ambulatory. Date/Time Provider Initiated Documentation: 12/21/23 14:02. Limitations to Documentation: no limitations. Information obtained by: patient, family and old records reviewed. HPI Narrative: HPI: This is a 38-year-old male patient with a past medical history significant for epilepsy, myoclonic jerks, who was seen in this emergency department earlier this morning for breakthrough seizure, presenting for evaluation of a second breakthrough seizure. Please see my prior note for full details of his initial evaluation and workup. After discharge from the hospital with a reassuring laboratory workup, the patient went home and was resting on the couch. He reports that he had several episodes of myoclonic jerking, and then his witnessed a tonic-clonic seizure with convulsive activity and change in responsiveness while lying on the couch. He did not sustain trauma or fall, this event lasted approximately 1 to 2 minutes, and when he awoke he was postictal but has had a gradual improvement in his consciousness. The patient states that he bit his tongue, but otherwise is without acute complaint. He does not feel any weakness or sensory changes, and did not take any medications or do anything in between his last visit and this 1. Exam: Gen: Awake and alert, in no apparent distress HEENT: Non-icteric sclera, pupils equal and reactive bilaterally, EOMs are full. The patient has lacerations to the lateral aspect of his tongue, hemostatic Neck: Supple Lungs: No apparent respiratory distress, normal respiratory effort. CV: Appears well perfused, strong distal pulses Abdomen: Non-distended MSK: Moves 4 extremities without apparent limitation in ROM Skin: Visualized skin without rashes, cyanosis. Neuro: Normal Gait, no obvious focal deficits or facial asymmetry. Speaks in full, clear sentences. Psych: Appropriate for situation. MDM: This is a 38-year-old male patient presenting for evaluation of breakthrough seizure. My differential includes but is not limited to subtherapeutic medication levels, sequelae of increased stress and poor sleep. He had an workup within the last several hours which was without evidence of electrolyte derangement, kidney injury, liver disease, or anemia. He has not sustained trauma, and he has no neurodeficits on my repeat examination that significantly increases my concern for intracranial hemorrhage, mass effect. he has no fever or recent illnesses to suggest meningitis or encephalitis. Patient is currently mentating well, we will reestablish an IV and reach out to [facility] teleneuro to discuss next steps in care. Certainly we will provide him with medications if he has a subsequent episode of seizure activity. ED Course: Monitored in the emergency department with no subsequent seizure activity, vital signs stable. Patient was signed out to the oncoming provider prior to evaluation by teleneurology. Jesika Flores MD Related Data Home Medications ?Medication ?Instructions ?Recorded ?Confirmed lorazepam 0.5 mg tablet 0.5 mg PO QD-BID PRN anxiety #1 tab 07/21/18 12/21/23 duloxetine 20 mg capsule,delayed 20 mg PO DAILY 11/21/22 12/21/23 release (Cymbalta) zonisamide 100 mg capsule See Rx Instructions .Route 11/20/23 12/21/23 .COMPLEX #270 caps Previous Rx's ?Medication ?Instructions ?Recorded lorazepam 0.5 mg tablet 0.5 mg PO QD-BID PRN anxiety #1 tab 07/21/18 zonisamide 100 mg capsule See Rx Instructions .Route 11/20/23 .COMPLEX #270 caps Allergies Allergy/AdvReac Type Severity Reaction Status Date / Time No Known Allergies Allergy Unverified 12/21/23 14:05 General Stated Complaint: Seizure TAVO: 3 Course Vital Signs Vital signs: Vital Signs Respiratory Rate 17 12/21/23 14:05 Temperature 36.4 C L 12/21/23 14:06 Temperature Source Oral 12/21/23 14:06 Pulse 91 H 12/21/23 14:06 Pulse 92 H 12/21/23 14:10 Respiratory Rate 17 12/21/23 14:10 Respiratory Effort Normal 12/21/23 14:13 Respiratory Depth Normal 12/21/23 14:13 Respiratory Pattern Normal 12/21/23 14:13 Blood Pressure 131/113 H 12/21/23 14:06 Blood Pressure Mean 117 12/21/23 14:06 Blood Pressure Position Supine 12/21/23 14:06 Pulse Oximetry 100 12/21/23 14:10 Oxygen Delivery Method Room Air 12/21/23 14:06 Oxygen Flow Rate 0 12/21/23 14:06 Pain Level 0 12/21/23 14:06 Medical Decision Making Quality:SDOH Health Related Social Needs: No Data to Display PFSH All Active Problems (Updated 12/21/23 @ 11:59 by Jesika Flores MD) Breakthrough seizure (Acute) Strep pharyngitis (Acute) Hyperacusis of left ear (Acute) Normal hearing exam (Acute) Encounter for screening for other viral diseases (Acute) Atrial fibrillation (Chronic) s/p ablation Anxiety (Chronic) Left inguinal hernia (Acute 02/19/17) Left varicocele (Acute 02/19/17) Nonintractable generalized idiopathic epilepsy without status epilepticus (Acute 10/19/15) Medical History Atrial flutter Seizure disorder Social phobia Alcohol abuse, in remission Recent weight loss Otalgia of left ear Tenderness of temporomandibular joint Decreased libido Surgical History History of cardiac radiofrequency ablation Family History Father Heart disease Bladder cancer Mother Breast disease Social History Smoking/Tobacco Use Status: Never Smoking risk assessment performed?: Yes Alcohol Intake: current Alcohol Intake frequency: holidays/special occasions only Alcohol type: beer Drug use: Never Substance use type: does not use Household members: spouse and children Housing: house Number of Children: 2 current occupation: [employer] Do you feel safe at home: Yes Do you feel safe in your relationship?: Yes Additional Social history: pt is not alone to assess privately but at side and very attentive and crying r/t events, emotional support given. Sign Out Sign Out Data: Sign Out Comment: History of epilepsy, has not had a seizure since 2010, maintained on zonisamide 300 mg nightly. Experienced breakthrough seizure this morning, had a reassuring laboratory workup and neuro examination was sent home. Had a second breakthrough seizure after discharge, prompting return to care. [ ] [facility] teleneuro evaluation and recommendations Last updated by Jesika Flores MD at 12/21/23 15:16
--- NOTE | 2023-12-21 15:38 | W.EDPROG ---
Date of service: 12/21/23 Time of Service: 15:38 Medical Decision Making This dictation utilizes [id number] dictation software and may contain unedited grammatical errors. Patient seen in signout from Dr. Jesika Flores, please see her complete note, essentially this 38-year-old male with known epilepsy had a breakthrough seizure and presented to ED this morning had a reassuring laboratory workup, he was discharged and then had a second breakthrough's brief seizure at home-he is currently on zonisamide only and is compliant with this medicine. Pending actions at signout include [facility] consult for recommendations on possible medication changes versus transfer for MRI and EEG. Patients' medical history: Atrial flutter, seizure disorder, alcohol abuse in remission. Family and social history: Denies illicit substance use, denies alcohol use. Differential / pathologies of concern include breakthrough seizures, brain mass. Diagnostic studies of: -CT head without contrast, UDS -CT head negative, UDS negative. Interventions of: -Rx for intranasal diazepam, discussed case with [facility] [place] [place]. Hart who recommends upping the dose of zonisamide to 400, recommends discharge with a negative head CT and follow-up with their neurologist. ED Course/Assessment/Plan: 38-year-old male presents with breakthrough seizures was evaluated earlier today but had another 1 after discharge, not in status epilepticus and was resting currently at baseline without any intervention or seizure activity in the ED this evening, [facility] [place] [place]. Hart recommends CT head to rule out other pathology that could be causing breakthrough seizures, the patient and his spouse did endorse that they had a couple glasses of wine last night with dinner I do not suspect that there is any substance abuse driving the breakthrough seizures, I stressed that they should not have him drive anywhere until this is figured out, I did bump his dose of his Lunesta mild to 400 mg daily and provided outpatient prescription for intranasal diazepam for any need for acute seizure intervention at home by his spouse. I scheduled him for an outpatient MRI on Saturday per [facility] as well as follow-up with [facility] neurology Dr. Rm. Findings not consistent with status epilepticus. Disposition of Breakthrough Seizure. Patient verbalized understanding of the plan and return to ED criteria and engaged in shared decision making. Medical Records Medical records reviewed: Yes I reviewed the patient's medical records. Imaging Data Radiologic Study: Attestation: I personally reviewed and interpreted this imaging study as follows: Imaging: CT Scan Radiologist's impression: Exam: CT Head Without Contrast Exam date and time: 12/21/2023 4:39 PM Age: 38 years old Clinical indication: Breakthrough seizures TECHNIQUE: Imaging protocol: Computed tomography of the head without contrast. COMPARISON: CT HEAD FACIAL WO 07/12/2018 5:09 PM FINDINGS: Brain: Normal. No hemorrhage. Unremarkable white matter. No mass effect. Cerebral ventricles: No ventriculomegaly. Paranasal sinuses: Visualized sinuses are unremarkable. No fluid levels. Mastoid air cells: Visualized mastoid air cells are well aerated. Bones: Unremarkable. No acute fracture. Soft tissues: Unremarkable. IMPRESSION: No acute intracranial abnormality. Dictated and Authenticated by: Galilea Guerra MD. Lab Data Lab results reviewed: Yes I reviewed the patient's lab results. Labs: Laboratory Tests Range/Units 12/21/23 16:34 Urine Opiates Screen (Negative) Negative Urine Methadone Screen (Negative) Negative Ur Barbiturates Screen (Negative) Negative Ur Tricyclics Screen (Negative) Negative Ur Amphetamines Screen (Negative) Negative U Benzodiazepines Scrn (Negative) Negative Urine Cocaine Screen (Negative) Negative Ur THC Screen (Negative) Negative Quality:SDOH Health Related Social Needs: No Data to Display Sign Out Sign Out Data: Sign Out Comment: History of epilepsy, has not had a seizure since 2010, maintained on zonisamide 300 mg nightly. Experienced breakthrough seizure this morning, had a reassuring laboratory workup and neuro examination was sent home. Had a second breakthrough seizure after discharge, prompting return to care. [ ] Waiting [facility] teleneuro evaluation and recommendations Last updated by Jesika Flores MD at 12/21/23 15:16 Discharge Plan Disposition Patient Disposition: Home Condition: Stable Discharge Details Clinical Impression: Breakthrough seizure Primary Care Provider: Dalia Bailey ED Provider: Gustavo Grover Home Meds and New Rx's Prescriptions: New diazepam 15 mg/2 spray (7.5/0.1mL x 2) spray,non-aerosol 15 mg intranasal Q4H Qty: 2 0RF Rx Instructions: administer 1 spray in each nostril; two doses max per episode; do not use for more than 1 episode very 5 days or 5 episodes per month Continued lorazepam 0.5 mg tablet 0.5 mg PO QD-BID PRN (Reason: anxiety) Qty: 1 0RF duloxetine [Cymbalta] 20 mg capsule,delayed release(DR/EC) 20 mg PO DAILY Held zonisamide 100 mg capsule See Rx Instructions .ROUTE .COMPLEX Qty: 270 3RF Hold Instructions: Resume on 12/22/23. Take 400mg daily, per Neurology's orders Dose Instruction: TAKE 300 MG (THREE) CAPSULE BY MOUTH AT BEDTIME Rx Instructions: TAKE 300 MG (THREE) CAPSULE BY MOUTH AT BEDTIME Discharge Instructions Instructions: Diazepam, Seizures, Adult ED Additional Instructions: You were seen in the emergency department for your breakthrough seizures. You were seen by [facility], they recommended a CT scan which showed no intracranial abnormality. They think it is reasonable to go up to 400 mg daily on your zonisamide and follow-up with neurology for MRI on Saturday, I have sent a referral for the MRI order, you can get this done at diagnostic imaging and then return to ED for results, please call the neurology office Saturday morning to see when they can fit you in to the schedule as well hopefully you can get a new EEG scheduled. Please return to the ER for any prolonged breakthrough seizure events, I did send you home with a prescription for intranasal diazepam to [facility] in [place]. Do not drive until these breakthrough seizures are figured out. Followup with [facility] Neurology. Referrals: [facility] [Provider Group] Dalia Bailey [Primary Care Provider] - Discharge Data Discharge Date/Time-TO BE ENTERED AT DEPARTURE: 12/21/23 17:52
--- NOTE | 2023-12-21 16:15 | DI.CT_ITS ---
Exam(s) CT HEAD WO EXAM: CT HEAD WO CLINICAL HISTORY: breakthrough seizures. TECHNIQUE: Imaging Protocol: Axial computed tomography images with coronal and sagittal reformatted images were created and reviewed COMPARISON: CT CT HEAD FACIAL WO from 07/12/2018 FINDINGS: Ventricles and Extra axial spaces: Normal in size and morphology for the patient's age. Hemorrhage: None. Cerebral parenchyma: No evidence of acute infarct or mass. Midline shift: None. Brainstem/Cerebellum: Normal. Calvarium: Normal. Visualized Paranasal sinuses:Clear. Mastoids: Clear. Soft Tissues: Unremarkable. ORBITS: Unremarkable. PITUITARY: Not enlarged. IMPRESSION: No acute intracranial process. RADIATION DOSE DELIVERED: Total DLP DATA REPOSITORY: All CT scans at this facility are submitted to the National Radiology Data Registry (NRDR) Dose Index Registry (DIR) with the [employer] (ACR). RADIATION OPTIMIZATION: All CT scans at this facility use at least one of these dose optimization te chniques: automated exposure control; mA and/or kV adjustment per patient size (includes targeted exa ms where dose is matched to clinical indication); or iterative reconstruction.
[2023-12-21 16:56] LABS: *AMPHETAMINES SCREEN URINE Negative (Negative); *BARBITURATES SCREEN URINE Negative (Negative); *BENZODIAZEPINES SCREEN URINE Negative (Negative); Cannabinoids THC Negative (Negative); Cocaine Screen,Urine Negative (Negative); METHADONE URINE SCREEN Negative (Negative); OPIATES URINE SCREEN Negative (Negative)
[2023-12-21 16:58] LABS: Tricyclic Antidepressants Negative (Negative)
--- NOTE | 2023-12-21 17:21 | DI.VRAD_ITS ---
PROCEDURE INFORMATION: Exam: CT Head Without Contrast Exam date and time: 12/21/2023 4:39 PM Age: 38 years old Clinical indication: Breakthrough seizures TECHNIQUE: Imaging protocol: Computed tomography of the head without contrast. COMPARISON: CT HEAD FACIAL WO 07/12/2018 5:09 PM FINDINGS: Brain: Normal. No hemorrhage. Unremarkable white matter. No mass effect. Cerebral ventricles: No ventriculomegaly. Paranasal sinuses: Visualized sinuses are unremarkable. No fluid levels. Mastoid air cells: Visualized mastoid air cells are well aerated. Bones: Unremarkable. No acute fracture. Soft tissues: Unremarkable. IMPRESSION: No acute intracranial abnormality. Dictated and Authenticated by: Galilea Guerra MD. Ordering:INES Chen MD
== END 2023-12-21 17:52 | disposition home or self-care (01) ==
PROVIDERS: Emergency Provider Physician Assistant; PCP Nurse Practitioner Family
DX: G40.309 Generalized idiopathic epilepsy and epileptic syndromes, not intractable, without status epilepticus (principal); G25.3 Myoclonus; I48.91 Unspecified atrial fibrillation
CPT/HCPCS: 00123; 80307; 99284; 70450

== ENCOUNTER 2023-12-23 08:16 | Emergency (ER) | payer OTHER, SELFPAY ==
[2023-12-23 08:20] VITALS: BP 128/79; PULSE 73; RESP 18; TEMP 36.6; O2SAT 98
--- NOTE | 2023-12-23 08:55 | ED.GENADUL_ITS ---
Discharge Plan Disposition Patient Disposition: Home Condition: Good Discharge Details Clinical Impression: Follow-up exam Primary Care Provider: Dalia Bailey ED Provider: Gustavo Aguirre Home Meds and New Rx's Prescriptions: Continued lorazepam 0.5 mg tablet 0.5 mg PO QD-BID PRN (Reason: anxiety) Qty: 1 0RF duloxetine [Cymbalta] 20 mg capsule,delayed release(DR/EC) 20 mg PO DAILY zonisamide 100 mg capsule 400 mg PO HS Rx Instructions: TAKE 300 MG (THREE) CAPSULE BY MOUTH AT BEDTIME diazepam 15 mg/2 spray (7.5/0.1mL x 2) spray,non-aerosol 15 mg intranasal Q4H Qty: 2 0RF Rx Instructions: administer 1 spray in each nostril; two doses max per episode; do not use for more than 1 episode very 5 days or 5 episodes per month Discharge Instructions Instructions: Seizures Additional Instructions: At this time your MRI demonstrates notable stability. Dr. Rm does not want any additional testing currently and would like to follow-up with you closely at your scheduled appointment tomorrow. It would be reasonable to cut out alcohol for the time being as this may certainly increase the likelihood and lower threshold of your seizures. Please continue to take your medication as directed. If you notice any worsening of your symptoms, or any new symptoms such as vomiting, diarrhea, fever, chills, shortness of breath, chest pain, numbness, weakness, or fainting , please return immediately to the emergency department for reevaluation. Please follow up with your primary care provider as soon as possible for reassessment and reevaluation. As always, it was a pleasure participating in your medical care today. Referrals: Dalia Bailey [Primary Care Provider] - Jesika Rm MD [ [facility] STAFF PHYSICIAN] - Discharge Data Discharge Date/Time-TO BE ENTERED AT DEPARTURE: 12/23/23 09:07 HPI General Date/Time Provider Initiated Documentation: 12/23/23 08:20 . HPI Narrative: 38-year-old male with a past medical history of atrial fibrillation with ablation which has now resolved, Seizures that have been well-controlled, classically the last seizure was 11 years ago, currently he is being managed on zonisamide. 3 days ago the patient had a couple glasses of wine at night. In the morning when he woke up he felt a bit off, quite tired and had some occasional myoclonic jerking, then he had a full seizure with tonic-clonic movements and tongue biting. He came to the ER had a benign workup, was di scharged home and then had a repeat seizure. He was evaluated again in the ED, teleneuro was consulted, he was eventually discharged with rescue diazepam, zonisamide was increased to 400 mg nightly, and he is scheduled for an MRI today. Patient has had an MRI today and is following up for the results. Currently the patient states he is otherwise been doing well, he has had no repeat events. He feels well and has an appointment with his neurologist Dr. Rm tomorrow at 10 AM. No other complaints at this time. No other modifying factors. Related Data Home Medications ?Medication ?Instructions ?Recorded ?Confirmed lorazepam 0.5 mg tablet 0.5 mg PO QD-BID PRN anxiety #1 tab 07/21/18 12/23/23 duloxetine 20 mg capsule,delayed 20 mg PO DAILY 11/21/22 12/23/23 release (Cymbalta) diazepam 15 mg (0.2 mL) intranasal Q4H 2 12/21/23 12/23/23 doses #2 sprays zonisamide 100 mg capsule 400 mg PO HS 12/23/23 12/23/23 Previous Rx's ?Medication ?Instructions ?Recorded lorazepam 0.5 mg tablet 0.5 mg PO QD-BID PRN anxiety #1 tab 07/21/18 diazepam 15 mg (0.2 mL) intranasal Q4H 2 12/21/23 doses #2 sprays Allergies Allergy/AdvReac Type Severity Reaction Status Date / Time No Known Allergies Allergy Unverified 12/23/23 08:22 General Stated Complaint: Recheck TAVO: 5 Review of Systems All systems reviewed & are unremarkable except as noted in HPI and below Exam Narrative Exam Narrative: 1.Const: Well-nourished, Well-developed, appearing stated age 2.Eyes: PERRL, no conjunctival injection, and symmetrical lids. 3.ENT: Atraumatic external nose and ears. Moist MM. Neck: Symmetric, trachea midline, No thyromegaly. Multiple healing tongue bite lesions 4.CVS: +S1/S2, Peripheral pulses 2+ and equal in all extremities. Brisk capillary refill in all extremities. 5.RESP: Unlabored respiratory effort. Clear to auscultation bilaterally. No wheezes rales or rhonchi 6.GI: Soft, Nontender/Nondistended, No hepatosplenomegaly. No guarding or rebound. 7.MSK: Normocephalic/Atraumatic, Extremities w/o deformity or ttp No cyanosis or clubbing, Normal movement of all extremities 8.Skin: Warm, Dry. No rashes or lesions. 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 Sensation grossly intact, no focal neurologic deficits. All 6 cardinal planes of vision are fully intact. No evidence of rotatory or vertical nystagmus. The patient demonstrated a normal [id number]-[id number], good dexterity. There was no evidence of dysdiadochokinesia. Patient was able to ambulate without difficulty. There was no wide-based gait. Romberg testing was normal. Qtdd-or-yjcv testing was normal. Sensation was intact bilaterally as well as muscle strength bilaterally for all extremities. Patient was able to verbalize butter cup with no slurring, or miss pronunciation. 10.Psych: (AAO) x3. Appropriate mood and affect Course Vital Signs Vital signs: Vital Signs Temperature 36.6 C 12/23/23 08:20 Pulse 73 12/23/23 08:20 Respiratory Rate 18 12/23/23 08:20 Blood Pressure 128/79 12/23/23 08:20 Pulse Oximetry 98 12/23/23 08:20 Temperature 36.6 C 12/23/23 08:20 Pulse 73 12/23/23 08:20 Respiratory Rate 18 12/23/23 08:20 Respiratory Effort Normal, Non-Labored 12/23/23 08:24 Blood Pressure 128/79 12/23/23 08:20 Pulse Oximetry 98 12/23/23 08:20 Oxygen Delivery Method Room Air 12/23/23 08:20 Oxygen Flow Rate 0 12/23/23 08:20 Medical Decision Making 38-year-old male with a past medical history of atrial fibrillation with ablation which has now resolved, Seizures that have been well-controlled, classically the last seizure was 11 years ago, currently he is being managed on zonisamide. 3 days ago the patient had a couple glasses of wine at night. In the morning when he woke up he felt a bit off, quite tired and had some occasional myoclonic jerking, then he had a full seizure with tonic-clonic movements and tongue biting. He came to the ER had a benign workup, was discharged home and then had a repeat seizure. He was evaluated again in the ED, teleneuro was consulted, he was eventually discharged with rescue diazepam, zonisamide was increased to 400 mg nightly, and he is scheduled for an MRI today. Patient has had an MRI today and is following up for the results. Currently the patient states he is otherwise been doing well, he has had no repeat events. He feels well and has an appointment with his neurologist Dr. Rm tomorrow at 10 AM. No other complaints at this time. No other modifying factors. Physical exam at this time demonstrates no significant abnormalities. Normal neurologic assessment, with no concerning red flags. His tongue bite lesions are healing well. Patient otherwise looks well and feels well and has had no other precipitating events since the initial events this weekend. MRI has returned and shows evidence of a questionable slight decrease in the size of the right hippocampus compared to the left, but no other abnormalities otherwise. I did consult neurology Dr. Rm, and discussed the case with her. She has no additional recommendations at this time, but does agree with the plan to cut down on alcohol and to continue the current increased dose of his Nicomide. She will follow-up with him closely tomorrow. Patient agrees with this plan, is at bedside. No additional questions currently. Patient will remain on seizure precautions until he is cleared by Dr. Rm tomorrow I have extensively reviewed the treatment plan and discharge instructions with the patient and their family. I have addressed all patient concerns at this time. The patient and family was made aware of what symptoms to monitor for that would warrant a return to the emergency department. Discussed the plan with the patient and family, they demonstrate verbal understanding and agreement with our assessment and plan at this time. The documentation in this chart was dictated using [employer] dictation software. Please excuse any dictation errors. FINDINGS: VENTRICLES AND EXTRA AXIAL SPACES: Normal in size and morphology for the patient's age. MIDLINE SHIFT: None. CEREBRAL PARENCHYMA: No focus of restricted diffusion to suggest acute infarct. No space-occupying lesion identified. There does appear to be slight decrease in size of the right hippocampus relative to the left. There is mild increase in size of the temporal horn of the right lateral ventricle. There is normal signal seen on the T2 weighted images in the hippocampus. The diffusion- weighted images are unremarkable. HEMORRHAGE: None. BRAINSTEM/CEREBELLUM: Normal. CALVARIUM: Normal. VISUALIZED PARANASAL SINUSES/MASTOIDS:Clear. [place]: Normal flow void. PITUITARY GL[place]: Unremarkable. OTHER FINDINGS: None. IMPRESSION: 1. Question of slight decrease in size of the right hippocampus compared to the left. This can be seen in seizure patients. 2. Neurology consult is recommended. 3. Findings were discussed with the emergency department, Dr. Aguirre, at 8:30 a.m. on 12/23/2023. Quality:SDOH Health Related Social Needs: No Data to Display PFSH All Active Problems Follow-up exam (Acute) Breakthrough seizure (Acute) Breakthrough seizure (Acute) Strep pharyngitis (Acute) Hyperacusis of left ear (Acute) Normal hearing exam (Acute) Encounter for screening for other viral diseases (Acute) Atrial fibrillation (Chronic) s/p ablation Anxiety (Chronic) Left inguinal hernia (Acute 02/19/17) Left varicocele (Acute 02/19/17) Nonintractable generalized idiopathic epilepsy without status epilepticus (Acute 10/19/15) Medical History Atrial flutter Seizure disorder Social phobia Alcohol abuse, in remission Recent weight loss Otalgia of left ear Tenderness of temporomandibular joint Decreased libido Surgical History History of cardiac radiofrequency ablation Family History Father Heart disease Bladder cancer Mother Breast disease Social History Smoking/Tobacco Use Status: Never Smoking risk assessment performed?: Yes Alcohol Intake: current Alcohol Intake frequency: holidays/special occasions only Alcohol type: beer Drug use: Never Substance use type: does not use Household members: spouse and children Housing: house Number of Children: 2 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 PAWSS Have you Been Recently Intoxicated or Drunk Within the Last 30 days?: No Have you Ever Experienced Previous Episodes of Alcohol Withdrawal?: No Have you ever Experienced Withdrawal Seizures?: No Have you ever Experienced Delirium Tremens(DT)s?: No Have you ever undergone Alcohol Rehabilitation Treatment (i.e, inpt ot outpatient treatment programs)?: No Have you ever Experienced Blackouts?: No Have you ever Combined Alcohol with other Downers within the last 90 days?: No Have you ever Combined Alcohol with any other Substance of Abuse during the last 90 days?: No Result: 0
== END 2023-12-23 09:07 | disposition home or self-care (01) ==
PROVIDERS: Emergency Provider Student in an Organized Health Care Education/Training Program; PCP Nurse Practitioner Family
DX: I48.91 Unspecified atrial fibrillation
CPT/HCPCS: 99282; 99283

== ENCOUNTER 2023-12-23 11:28 | Outpatient (CLI) | payer OTHER, SELFPAY ==
--- NOTE | 2023-12-23 | DI.MRI_ITS ---
Exam(s) MR BRAIN WO EXAM: MR BRAIN WO CLINICAL HISTORY: BREAKTHROUGH SEIZURES TECHNIQUE: Multiplanar multisequence MRI of the brain was performed. COMPARISON: CT CT HEAD FACIAL WO from 07/12/[address] HEAD WO from 12/21/2023 FINDINGS: VENTRICLES AND EXTRA AXIAL SPACES: Normal in size and morphology for the patient's age. MIDLINE SHIFT: None. CEREBRAL PARENCHYMA: No focus of restricted diffusion to suggest acute infarct. No space-occupying le shruthi identified. There does appear to be slight decrease in size of the right hippocampus relative to the left. There is mild increase in size of the temporal horn of the right lateral ventricle. Ther e is normal signal seen on the T2 weighted images in the hippocampus. The diffusion-weighted images are unremarkable. HEMORRHAGE: None. BRAINSTEM/CEREBELLUM: Normal. CALVARIUM: Normal. VISUALIZED PARANASAL SINUSES/MASTOIDS:Clear. [place]: Normal flow void. PITUITARY GLAND: Unremarkable. OTHER FINDINGS: None. IMPRESSION: 1. Question of slight decrease in size of the right hippocampus compared to the left. This can be se en in seizure patients. 2. Neurology consult is recommended. 3. Findings were discussed with the emergency department, Dr. Aguirre, at 8:30 a.m. on 12/23/2023. DATA REPOSITORY:
== END 2023-12-23 11:48 ==
LOC: DI 11:28
PROVIDERS: PCP Nurse Practitioner Family; Visit Provider Physician Assistant
DX: G40.89 Other seizures (principal)
CPT/HCPCS: 70551

== ENCOUNTER 2024-02-27 15:13 | Outpatient (REF) | payer OTHER, SELFPAY ==
[2024-02-27 15:37] LABS: HCT 44.2 % (40.0-50.0); HGB 15.6 g/dL (13.5-17.5); MCH 29.6 pg (27.0-33.0); MCHC 35.3 % (32.0-36.0); MCV 84 fL (80-95); MPV 10.7 fL (8.0-11.0); Platelet Count 269 10^3/uL (130-400); RBC 5.27 10^6/uL (4.36-5.78); RDW-SD 36.8 fL
[2024-02-27 15:58] LABS: ALT 22 U/L (16-63); AST 15 U/L (15-37); Albumin 4.2 g/dL (3.4-5.0); Alkaline Phosphatase 55 U/L (46-116); Anion Gap 6.3 mmol/L (3-11); BUN 11 mg/dL (7-18); Bilirubin, Total 0.28 mg/dL (0.2-1.0); CO2 31.7 mmol/L (21.0-32.0); CREATININE 0.9 mg/dL (0.70-1.30); Calcium 9.3 mg/dL (8.5-10.1); Chloride 104 mmol/L (98-107); Estimated GFR 110.73 (mL/min/1.73m2); Glucose 101 mg/dL (74-106); Potassium 3.9 mmol/L (3.5-5.1); Sodium 142 mmol/L (136-145)
== END 2024-02-27 15:14 | disposition home or self-care (01) ==
LOC: NCHCN 15:13
PROVIDERS: PCP Nurse Practitioner Family; Visit Provider Nurse Practitioner Family
DX: Z01.818 Encounter for other preprocedural examination (principal)
CPT/HCPCS: 80053; 85027

== ENCOUNTER 2024-03-09 11:34 | Outpatient (REF) | payer OTHER, SELFPAY ==
[2024-03-09 15:36] LABS: Calculated LDL 99 mg/dL (<100); Cholesterol 168 mg/dL (<200); HDL Cholesterol 59 mg/dL (40-60); Triglyceride 53 mg/dL (<150)
[2024-03-09 21:30] LABS: CRP, High Sensitivity 0.41 mg/L (See Note)
[2024-03-09 22:10] LABS: PSA, Screening 0.3 ng/mL (<=2.5)
== END 2024-03-09 11:35 | disposition home or self-care (01) ==
LOC: LBN 11:34
PROVIDERS: PCP Nurse Practitioner Family; Visit Provider Nurse Practitioner Family
DX: Z13.220 Encounter for screening for lipoid disorders (principal); Z80.42 Family history of malignant neoplasm of prostate
CPT/HCPCS: 80061; 84153; 86141